=== PATIENT | male | born 1980 | race Caucasian/White ===

== ENCOUNTER 2023-02-13 14:22 | Emergency (ER) | payer SELFPAY ==
[2023-02-13 15:14] LABS: Hematocrit 40.2 % (42.0-52.0); Hemoglobin 13.7 g/dL (14.0-18.0); MDiff Complete? YES; Manual Diff?? YES; Mean Corpuscular Hemoglobin 29.5 pg (27.0-31.0); Mean Corpuscular Volume 86.8 fl (78.0-98.0); Mean Platelet Volume 8.5 fL (7.4-10.4); Platelet Count 261 10x3/uL (130-400); RBC Distribution Width 11.2 % (11.5-14.5); Red Blood Cell (RBC) Count 4.63 mill/uL (4.70-6.10); White Blood Cell (WBC) Count 22.4 10x3/uL (4.8-10.8)
[2023-02-13] MEDS ORDERED: Sodium Chloride 0.9% 1,000 ML ONE ×2 (15:17→16:22)
[2023-02-13] MEDS ORDERED: Ketorolac Tromethamine 30 MG/ML VIAL ONE (15:17)
[2023-02-13] MEDS ORDERED: Ondansetron PF 4 MG/2 ML Vial ONE (15:17)
[2023-02-13 15:25] LABS: Anion Gap 14 mmol/L (10-20); BUN (Urea Nitrogen) 8 mg/dL (8.9-20.6); Band 12 % (5-11); Calc. Creatinine Clearance 0 mL/min (70-130); Calcium 9.2 mg/dL (7.8-10.44); Carbon Dioxide 22 mmol/L (22-29); Chloride 103 mmol/L (98-107); Estimated GFR 104; Glucose 125 mg/dL (70-105); Lymphocytes 13 % (21-51); Monocytes 5 % (0-10); Neutrophil 70 % (42-75); Potassium 2.9 mmol/L (3.5-5.1); Sodium 136 mmol/L (136-145)
[2023-02-13 15:27] LABS: Elliptocytes SLIGHT = 2-5 cells (100X) (0-1/hpf); Large Platelets SLIGHT (None Seen); Platelet Adequacy Comment Appears Adequate; Toxic Granulation SLIGHT; Vacuoles SLIGHT
[2023-02-13] MEDS ORDERED: Potassium Chloride 20 MEQ/100 ML PREMIX BAG ONE ×2 (15:53→16:09)
[2023-02-13] MEDS ORDERED: Sodium Chloride 0.9% 250 ML 250 ML ONE (15:53)
[2023-02-13] MEDS ORDERED: Acetaminophen 325 MG TAB ONE (16:29)
[2023-02-13 18:49] LABS: Lactic Acid 1.1 mmol/L (0.5-2.2)
== END 2023-02-13 19:12 | disposition home or self-care (01) ==
LOC: NAV ERS 14:22
DX: B34.9 Viral infection, unspecified (principal); D72.829 Elevated white blood cell count, unspecified; F17.220 Nicotine dependence, chewing tobacco, uncomplicated
CPT/HCPCS: 36415; 71045; 80048; 83605; 85025; 87804; 96361; 96365; 96366; 96375; J1885; J2405; J3480; J7050

== ENCOUNTER 2023-02-16 12:43 | Emergency (ER) | payer SELFPAY ==
[2023-02-16] MEDS ORDERED: Sodium Chloride 0.9% 1,000 ML ONE (13:18)
[2023-02-16] MEDS ORDERED: Ketorolac Tromethamine 30 MG/ML VIAL ONE (13:18)
[2023-02-16 13:54] LABS: Hemoglobin 12.7 g/dL (14.0-18.0); Red Blood Cell (RBC) Count 4.38 mill/uL (4.70-6.10)
[2023-02-16 13:55] LABS: #Basophils 0.2 thou/uL (0.0-0.2); #Lymphocytes 2.2 thou/uL (1.20-3.40); #Monocytes 1.3 thou/uL (0.11-0.59); #Neutrophils 14.4 thou/uL (1.40-6.50); %Eosinophils 0.2 % (0.0-10.0); %Lymphocytes 11.6 % (21.0-51.0); %Monocytes 7.1 % (0.0-10.0); %Neutrophils 70.8 % (42.0-75.0); Manual Diff?? NO; Mean Corpuscular HGB CONC 33.4 g/dL (32.0-36.0); Mean Corpuscular Hemoglobin 28.9 pg (27.0-31.0); Mean Corpuscular Volume 86.7 fl (78.0-98.0); Mean Platelet Volume 7.3 fL (7.4-10.4); Platelet Count 189 10x3/uL (130-400); RBC Distribution Width 11.4 % (11.5-14.5)
[2023-02-16 14:02] LABS: CRP (Inflammatory) 17.98 mg/dL (= or < 0.5)
[2023-02-16 14:03] LABS: ALT (SGPT) 10 U/L (8-55); AST (SGOT) 9 U/L (5-34); Albumin 3.5 g/dL (3.5-5.0); Alkaline Phosphatase 76 U/L (40-110); Anion Gap 15 mmol/L (10-20); BUN (Urea Nitrogen) 10 mg/dL (8.9-20.6); Bilirubin, Total 0.4 mg/dL (0.2-1.2); Calc. Creatinine Clearance 0 mL/min (70-130); Calcium 8.7 mg/dL (7.8-10.44); Carbon Dioxide 25 mmol/L (22-29); Chloride 101 mmol/L (98-107); Estimated GFR 112; Globulin 2.5 g/dL (2.4-3.5); Glucose 118 mg/dL (70-105); Potassium 3.1 mmol/L (3.5-5.1); Sodium 138 mmol/L (136-145)
[2023-02-16] MEDS ORDERED: Sodium Chloride 0.9% 100 ML ONE (14:08)
[2023-02-16] MEDS ORDERED: cefTRIAXone (ROCEPHIN) 2 GM VIAL ONE (14:08)
[2023-02-16 14:15] LABS: Troponin I Less than 0.010 ng/mL (< 0.028)
[2023-02-16] MEDS ORDERED: Ondansetron PF 4 MG/2 ML Vial ONE (14:23)
[2023-02-16] MEDS ORDERED: Potassium Chloride 20 MEQ TAB ONE (14:23)
[2023-02-16 14:26] LABS: SARS-CoV-2 NAA Rapid Test Not Detected (NotDetected)
[2023-02-16] MEDS ORDERED: NS 0.9% w/ 20 MEQ KCL 1,000 ML ONE (14:33)
[2023-02-16 14:35] LABS: Bilirubin Negative (Negative); Blood, Urine Negative (Negative); Clarity Clear (Clear); Glucose, Urine (Dipstick) Negative (Negative); Ketone, Urine Negative (Negative); Leukocyte Negative (Negative); Nitrite Negative (Negative); Protein, Urine (Dipstick) Negative (Neg-Trace); Specific Gravity, Urine 1.015 (1.005-1.030)
[2023-02-16 14:36] LABS: Squamous Epithelial 0-3 HPF (0-3)
[2023-02-16] MEDS ORDERED: Ipratropium/Albuterol 3 ML NEB ONE (14:54)
[2023-02-16] MEDS ORDERED: Acetaminophen 500 MG TAB ONE (16:02)
[2023-02-16] MEDS ORDERED: Azithromycin 250 MG TAB ONE (16:02)
[2023-02-16] MEDS ORDERED: Dexamethasone 4 mg/ml Vial ONE (19:06)
== END 2023-02-16 21:18 | disposition short-term general hospital (02) ==
LOC: NAV ERS 12:43
DX: J18.9 Pneumonia, unspecified organism (principal); E87.6 Hypokalemia; F17.220 Nicotine dependence, chewing tobacco, uncomplicated; Z20.822 Contact with and (suspected) exposure to COVID-19
CPT/HCPCS: 36415; 71046; 71275; 80053; 81001; 82550; 83605; 83690; 84484; 85025; 85379; 86140; 87040; 87070; 87077; 87086; 87149; 87186; 87205; 93005; 94640; 96365; 96366; 96367; 96375; J0696; J1100; J1885; J2405; J3480; J3490; J7050; J7620

== ENCOUNTER 2023-06-07 10:04 | Emergency (ER) | payer SELFPAY ==
[2023-06-07] MEDS ORDERED: Aspirin Chewable 81 MG TAB ONE (10:28)
[2023-06-07] MEDS ORDERED: Nitroglycerin 0.4 MG TAB 1 EACH ONE (10:28)
[2023-06-07 10:42] LABS: Amphetamine Detected (NotDetected); Barbiturates Screen Not Detected (NotDetected); Benzodiazepine Screen Not Detected (NotDetected); Cocaine Metabolite Screen Detected (NotDetected); Methadone Not Detected (NotDetected); Methamphetamine Detected (NotDetected); Opiate Screen Not Detected (NotDetected); Oxycodone Screen Not Detected (NotDetected); Phencyclidine (PCP) Not Detected (NotDetected); THC/Cannabinoid Screen Detected (NotDetected); Tricyclic Screen Not Detected (NotDetected)
[2023-06-07 10:49] LABS: #Basophils 0.1 thou/uL (0.0-0.2); #Eosinphils 0.1 thou/uL (0.0-0.7); #Lymphocytes 3.3 thou/uL (1.20-3.40); #Monocytes 0.7 thou/uL (0.11-0.59); #Neutrophils 3.9 thou/uL (1.40-6.50); %Basophils 1.4 % (0.0-1.0); %Eosinophils 1.6 % (0.0-10.0); %Lymphocytes 40.4 % (21.0-51.0); %Monocytes 8.6 % (0.0-10.0); %Neutrophils 48.1 % (42.0-75.0); Hematocrit 45.2 % (42.0-52.0); Hemoglobin 15.5 g/dL (14.0-18.0); Mean Corpuscular HGB CONC 34.2 g/dL (32.0-36.0); Mean Corpuscular Hemoglobin 29.1 pg (27.0-31.0); Mean Corpuscular Volume 84.9 fl (78.0-98.0); Mean Platelet Volume 6.9 fL (7.4-10.4); Platelet Count 326 10x3/uL (130-400); RBC Distribution Width 11.2 % (11.5-14.5); Red Blood Cell (RBC) Count 5.32 mill/uL (4.70-6.10); White Blood Cell (WBC) Count 8.2 10x3/uL (4.8-10.8)
[2023-06-07 11:05] LABS: Acetaminophen Less than 10 mcg/mL (10.0-30.0); Alcohol Less than 10.0 mg/dL (Less than 10); Salicylate Less than 8.0 mg/dL (15.0-30.0)
[2023-06-07 11:10] LABS: Troponin I Less than 0.010 ng/mL (< 0.028)
[2023-06-07 11:12] LABS: ALT (SGPT) 21 U/L (8-55); AST (SGOT) 26 U/L (5-34); Albumin 4.8 g/dL (3.5-5.0); Alkaline Phosphatase 84 U/L (40-110); Anion Gap 18 mmol/L (10-20); BUN (Urea Nitrogen) 11 mg/dL (8.9-20.6); Bilirubin, Total 0.7 mg/dL (0.2-1.2); Calc. Creatinine Clearance 0 mL/min (70-130); Calcium 10.5 mg/dL (7.8-10.44); Carbon Dioxide 18 mmol/L (22-29); Chloride 105 mmol/L (98-107); Estimated GFR 104; Globulin 2.8 g/dL (2.4-3.5); Glucose 109 mg/dL (70-105); Potassium 3.6 mmol/L (3.5-5.1); Protein, Total 7.6 g/dL (6.0-8.3); Sodium 137 mmol/L (136-145)
[2023-06-07] MEDS ORDERED: Lorazepam 2 MG/ML VIAL ONE (11:18)
[2023-06-07] MEDS ORDERED: Sodium Chloride 0.9% 1,000 ML ONE (11:19)
== END 2023-06-07 13:33 | disposition home or self-care (01) ==
LOC: NAV ERS 10:04
DX: R07.89 Other chest pain (principal); F14.10 Cocaine abuse, uncomplicated; G89.29 Other chronic pain; M54.2 Cervicalgia; M25.511 Pain in right shoulder; M25.512 Pain in left shoulder; F17.220 Nicotine dependence, chewing tobacco, uncomplicated
CPT/HCPCS: 71045; 80053; 80306; 80307; 84484; 85025; 93005; 96374; J2060; J7050